=== PATIENT | female | born 1955 | race Caucasian/White ===

== ENCOUNTER → 2016-08-21 | Outpatient (CLI) | payer OTHER ==
[~2016-08-21] MED LIST: ALBUAER9 INH; ASPI81TA28 PO; AZEL30SP INH; BUDE180I INH; CETI10TA84 PO; GLC/500 PO; KLN5X PO; MOME50SP5; MONT1TAB3 PO; OXYC20TA50 PO; WARF2TAB PO
== END | disposition home or self-care (01) ==
LOC: C.RDSM 14:32
PROVIDERS: ATTEND Physical Medicine & Rehabilitation Sports Medicine
DX: Z96.659 Presence of unspecified artificial knee joint (principal); M25.552 Pain in left hip